=== PATIENT | female | born 1975 | race African-American/Black ===

== ENCOUNTER 2023-04-13 11:56 | Inpatient (IN) | payer OTHER ==
[2023-04-13 13:08] VITALS: BMI 25.7
[2023-04-13] MEDS ORDERED: NALOXONE HCL 0.4 MG/ML VIAL IM PRN (13:59)
[2023-04-13] MEDS ORDERED: IBUPROFEN 600 MG TABLET (FP) PO PRN (13:59)
[2023-04-13] MEDS ORDERED: NALOXONE HCL (KLOXXADO) 8 MG SPRAY NS PRN (13:59)
[2023-04-13] MEDS: LORazepam 2 MG TABLET PO ONE (13:59)
[2023-04-13] MEDS ORDERED: ACETAMINOPHEN 325 MG TABLET (FP) PO PRN (13:59)
[2023-04-13] MEDS ORDERED: MAGNESIUM HYDROX 2400MG/30ML ORAL SUSPENSION 30 ML CUP PO PRN (13:59)
[2023-04-13] MEDS ORDERED: BENZOCAINE/MENTHOL (CHLORASEPTIC ) LOZENGE MM PRN (13:59)
[2023-04-13] MEDS ORDERED: IBUPROFEN 400 MG TABLET (FP) PO PRN (13:59)
[2023-04-13] MEDS ORDERED: LOPERAMIDE HCL 2 MG CAPSULE PO PRN (13:59)
[2023-04-13] MEDS ORDERED: BISMUTH SUBSALICYLATE 262 MG/15 ML BTL PO PRN (13:59)
[2023-04-13] MEDS ORDERED: BENZONATATE 200 MG CAPSULE PO PRN (13:59)
[2023-04-13] MEDS ORDERED: guaiFENesin 600 MG TABLET.ER (FP) PO PRN (13:59)
[2023-04-13] MEDS ORDERED: POLYETHYLENE GLYCOL (HEALTHYLAX) 3350 17 GM PACKET PO PRN (13:59)
[2023-04-13] MEDS ORDERED: DICYCLOMINE HCL 10 MG CAPSULE PO PRN (13:59)
[2023-04-13] MEDS ORDERED: LORazepam 1 MG TABLET PO PRN (13:59)
[2023-04-13] MEDS: PRENATAL VITAMINS W/ FOLIC ACID TABLET (FP) PO SCH (15:36)
[2023-04-13] MEDS ORDERED: ALBUTEROL SO4 HFA INHALER IH PRN (15:51)
[2023-04-13] MEDS: LORazepam 2 MG TABLET PO SCH (17:23)
[2023-04-13] MEDS: ONDANSETRON *ODT* 4 MG TABLET SL PRN (18:23)
[2023-04-13] MEDS: THIAMINE HCL 100 MG TABLET (FP) PO SCH (22:04)
[2023-04-13] MEDS: MELATONIN 5 MG TABLETS PO SCH (22:05)
[2023-04-13] MEDS: METHOCARBAMOL 500 MG TABLET PO PRN (23:07)
[2023-04-14] MEDS: LEVOTHYROXINE NA 150 MCG TABLET PO SCH (08:15)
[2023-04-14] MEDS: LEVOTHYROXINE 50 MCG, LEVOTHYROXINE 100 MCG PO SCH (09:41)
[2023-04-14] MEDS: LOSARTAN POTASSIUM 50 MG TABLET PO SCH (10:16)
[2023-04-14] MEDS: SPIRONOLACTONE 25 MG TABLET PO SCH (10:16)
[2023-04-14] MEDS: amLODIPine BESYLATE 10 MG TABLET (FP) PO SCH (10:16)
[2023-04-14] MEDS: RIVAROXABAN 20 MG TABLET PO SCH (10:52)
[2023-04-14 11:01] LABS: CHLORIDE 100 mmol/L (98-107); POTASSIUM 3.5 mmol/L (3.5-5.1); SODIUM 136 mmol/L (136-145)
[2023-04-14 11:04] LABS: HEMATOCRIT 38.4 % (32.4-45.2); MCH 32.6 pg (25.7-33.7); MCHC 33.9 g/dl (32.0-36.0); MEAN CELL VOLUME 96.3 fl (80-96); MEAN PLT VOLUME 8.1 fl (7.5-11.1); PLATELET COUNT 263 10^3/uL (134-434); RBC 3.99 M/mm3 (3.60-5.2); RDW 14.4 % (11.6-15.6); WHITE BLOOD COUNT 6.6 K/mm3 (4.0-10.0)
[2023-04-14 11:13] LABS: CALCIUM 9.5 mg/dL (8.5-10.1)
[2023-04-14 11:15] LABS: ANION GAP 9 mmol/L (4-13); BLOOD UREA NITROGEN 11.6 mg/dL (7-18); CO2 27 mmol/L (21-32); GLUCOSE,RANDOM 109 mg/dL (74-106)
[2023-04-14 11:17] LABS: CREATININE 0.7 mg/dL (0.55-1.3)
[2023-04-14 11:18] LABS: SGOT/AST 29 U/L (15-37); SGPT/ALT 20 U/L (13-61)
[2023-04-14 11:19] LABS: ALK PHOS 84 U/L (45-117); BILIRUBIN,TOTAL 0.9 mg/dL (0.2-1)
[2023-04-14] MEDS: DULoxetine HCL 20 MG CAPSULE.DR PO SCH (14:52)
[2023-04-14] MEDS: traZODone HCL 100 MG TABLET (FP) PO SCH (22:40)
[2023-04-14] MEDS: hydrOXYzine PAMOATE 25 MG CAPSULE (FP) PO PRN (22:41)
[2023-04-15] MEDS: LORazepam 1 MG TABLET PO SCH (05:38)
[2023-04-16] MEDS ORDERED: LORazepam 0.5 MG TABLET PO PRN
[2023-04-16] MEDS: LORazepam 0.5 MG TABLET PO SCH (05:55)
[2023-04-16] MEDS: MAG HYDROX/AL HYDROX/SIMETH 30 ML UNIT-DOSE CUP PO PRN (10:24)
[2023-04-17] MEDS: LORazepam 0.5 MG TABLET PO ONE (05:53)
[2023-04-17 09:38] VITALS: RESP 18
[2023-04-17] MEDS: LACTULOSE 20 GM/30 ML UDC (FOR ORAL USE ONLY) PO SCH (15:04)
[2023-04-18 13:32] VITALS: BP 126/78; PULSE 88; TEMP 98.7
== END 2023-04-18 13:32 | disposition home or self-care (01) | DRG 775 ==
LOC: YASAS 11:56 → Y6N 14:13
PROVIDERS: ADMIT Allergy & Immunology; ATTEND Surgery
PROC: HZ2ZZZZ Detoxification Services for Substance Abuse Treatment (ICD-10-PCS; principal; 2023-04-13)
DX: F10.230 Alcohol dependence with withdrawal, uncomplicated (principal); F12.10 Cannabis abuse, uncomplicated; F17.210 Nicotine dependence, cigarettes, uncomplicated; F10.282 Alcohol dependence with alcohol-induced sleep disorder; F32.9 Major depressive disorder, single episode, unspecified; D68.61 Antiphospholipid syndrome; E72.20 Disorder of urea cycle metabolism, unspecified; E03.9 Hypothyroidism, unspecified; I10 Essential (primary) hypertension; J45.20 Mild intermittent asthma, uncomplicated; Z62.810 Personal history of physical and sexual abuse in childhood; Z91.410 Personal history of adult physical and sexual abuse; Z63.8 Other specified problems related to primary support group; Z63.0 Problems in relationship with spouse or partner
CPT/HCPCS: 36415; 80053; 80305; 80307; 81025; 82140; 85027; 86780; 87635; 93005; 93010; Q0162